=== PATIENT | male | born 2000 | race Native Hawaiian/Other Pacific Islander ===

== ENCOUNTER 2022-05-27 14:50 | Emergency (ER) | payer MEDICAID, SELFPAY ==
[2022-05-27 15:30] VITALS: BP 152/95; PULSE 92; RESP 18; TEMP 37.5; O2SAT 98; BMI 28.1
[2022-05-27 17:26] LABS: Strep A DNA Probe* NOT DETECTED (Not Detectd)
[2022-05-27 17:39] LABS: PCR FLU A Negative PCR FLU A (Negative); PCR FLU B Negative PCR FLU B (Negative)
[2022-05-27 17:40] LABS: SARS PCR* Negative SARS-CoV-2 (Negative)
[2022-05-27 18:15] LABS: Mono Screen* Negative (Negative)
--- NOTE | 2022-05-27 18:20 | ED.NURSE ---
Pt brought back to room ED2-1.
--- NOTE | 2022-05-27 18:29 | ED_ITS ---
HPI - General Adult General Chief complaint: Sore Throat Stated complaint: Sore Throat Time Seen by Provider: 05/27/22 15:56 Source: patient Mode of arrival: ambulatory Limitations: no limitations History of Present Illness HPI narrative: 22 year old male coming in today complaining of sore throat for the last 4 days. He is not taking any medications. He denies any fevers, vomiting or cough. No body aches. Normal appetite. No difficulty breathing or swallowing. No excessive drooling. No difficulty opening or closing his mouth. No trismus. Related Data Home Medications Medication Instructions Recorded Confirmed No Known Home Medications 05/27/22 05/27/22 Allergies Allergy/AdvReac Type Severity Reaction Status Date / Time No Known Drug Allergies Allergy Verified 05/27/22 15:32 Review of Systems Status of ROS: Reports: 10 or more systems reviewed and unremarkable except as noted in History and below Exam Narrative: Exam Narrative: Well-nourished well-developed patient in no acute distress. Alert and oriented. Answers questions appropriately. Mood and affect are appropriate. Thoughts are goal oriented and rational. No tangential or magical thinking noted. Patient speaks in full sentences without needing to catch their breath. Speech is not slurred or pressured. Voice sounds normal. HEENT: Normocephalic atraumatic. Pupils are equally round reactive to light. Extraocular muscles are intact. Conjunctivae are moist without any icterus noted. Moist mucous membranes. Posterior pharynx is normal. Tonsils appear normal. Soft palate is intact without any swelling or erythema. He can open and close his mouth without difficulty. He has no ear pain. Neck is soft without any lymphadenopathy or thyromegaly. No masses are appreciated. Cardiovascular: Heart is regular rate and rhythm S1 and S2 are present without any murmurs. Lungs: Clear to auscultation bilaterally no wheezes rhonchi or rales are appreciated. Patient takes deep breaths without any discomfort. Skin: Well perfused without any obvious rashes. Const: Vital Signs, click to edit/add: Vital Signs - 24 hr 05/27/22 15:30 Temperature 99.5 F Pulse Rate [Right Pulse Oximeter] 92 Respiratory Rate 18 Blood Pressure [Ri ght Upper Arm] 152/95 H Pulse Oximetry 98 Oxygen Delivery Me thod Room Air Course Course Hospital Course: COVID, influenza, strep, mono all negative. Vital Signs Vital signs: Initial Vital Signs Temperature 99.5 F 05/27/22 15:30 Temperature Source Temporal Artery Scan 05/27/22 15:30 Pulse Rate 92 05/27/22 15:30 Respiratory Rate 18 05/27/22 15:30 Blood Pressure 152/95 H 05/27/22 15:30 Blood Pressure Mean 114 05/27/22 15:30 Blood Pressure Position Sitting 05/27/22 15:30 Pulse Oximetry 98 05/27/22 15:30 Oxygen Delivery Method 05/27/22 15:30 Vital Signs Temperature 99.5 F 05/27/22 15:30 Pulse Rate 92 05/27/22 15:30 Respiratory Rate 18 05/27/22 15:30 Blood Pressure 152/95 H 05/27/22 15:30 Pulse Oximetry 98 05/27/22 15:30 Oxygen Delivery Method 05/27/22 15:30 Temperature 99.5 F 05/27/22 15:30 Pulse Rate 92 05/27/22 15:30 Respiratory Rate 18 05/27/22 15:30 Blood Pressure 152/95 H 05/27/22 15:30 Pulse Oximetry 98 05/27/22 15:30 Oxygen Delivery Method 05/27/22 15:30 Medical Decision Making MDM Narrative Medical decision making narrative: 22-year-old male with likely viral pharyngitis. We discussed symptomatic treatment reasons to return for follow-up. Differential Diagnosis Differential Diagnosis: Bacterial pharyngitis Lab Data Labs: Lab Results 05/27/22 05/27/22 05/27/22 Range/Units 15:56 15:56 17:41 SARS-CoV-2 (PCR) Negative SARS-CoV-2 (Negative) Monoscreen Negative (Negative) Influenza Type A (PCR) Negative PCR FLU A (Negative) Influenza Type B (PCR) Negative PCR FLU B (Negative) Group A Strep DNA NOT DETECTED (Not Detectd) Discharge Plan Discharge Clinical Impression: Acute viral pharyngitis Patient Disposition: Home, Self-Care Condition: Stable Additional Instructions: Okay to take 600 mg of ibuprofen every 8 hours as needed with food. Also can try Tylenol 1000 mg every 8 hours. Follow-up with primary care provider if you feel like things are getting worse instead of better over the next several days. Prescriptions: No Action No Known Home Medications Follow Up/Referrals: Tee Guan MD [Primary Care Provider] - Stand Alone Forms: [employer] Info Instructions
[2022-05-27 18:31] VITALS: BP 151/85; PULSE 95; O2SAT 97
== END 2022-05-27 18:49 | disposition home or self-care (01) ==
LOC: ED2 18:40
PROVIDERS: Emergency Provider Family Medicine; PCP Family Medicine
DX: J02.9 Acute pharyngitis, unspecified (principal)
CPT/HCPCS: 36415; 86308; 87631; 87651; 99283; 99284

== ENCOUNTER 2022-05-29 12:39 | Emergency (ER) | payer MEDICAID, SELFPAY ==
[2022-05-29 12:58] VITALS: BP 160/90; PULSE 113; RESP 16; TEMP 37.4; O2SAT 96; BMI 28.1
[2022-05-29 14:00] VITALS: BP 162/96; PULSE 107; RESP 20; O2SAT 97
[2022-05-29] MEDS: ACETAMINOPHEN 500 MG TABLET 1000 MG PO (14:59)
[2022-05-29] MEDS: IBUPROFEN 200 MG TABLET 400 MG PO (14:59)
[2022-05-29 15:09] LABS: Strep A DNA Probe* NOT DETECTED (Not Detectd)
--- NOTE | 2022-05-29 17:31 | ED.GENADULT ---
HPI - General Adult General Chief complaint: Sore Throat Stated complaint: Sore throat Time Seen by Provider: 05/29/22 14:06 Source: patient and family History of Present Illness HPI narrative: Patient is a 22-year-old who was seen here yesterday for sore throat. He had viral testing done which was negative, strep rapid test was negative. He was sent home with recommended supportive care. He comes back because of ongoing sore throat. He said at triage that he could not swallow secretions however, in conversation with me he is speaking with a normal voice and is swallowing secretions without difficulty. No difficulty breathing. In talking with him, he is not really taking anything for pain. He is taking occasional Tylenol, has not taken anything today. He is taking cough medicine and occasional cold medicine. His mom helps fill in some of the details about what he has been taking for medication. She speaks [place]ian so they conversed with each other and then he he relays the information that she is telling him about what he has been taking. He says he does not smoke or drink. Related Data Home Medications Medication Instructions Recorded Confirmed No Known Home Medications 05/27/22 05/27/22 Allergies Allergy/AdvReac Type Severity Reaction Status Date / Time peanut Allergy Severe Swelling Verified 05/29/22 13:04 of Lip/Tongue/Throat tree nut Allergy Severe Swelling Verified 05/29/22 13:04 of Lip/Tongue/Throat Review of Systems Status of ROS: Reports: 10 or more systems reviewed and unremarkable except as noted in History and below [facility] Social History Smoking Status: Never smoker Do you use any of these nicotine containing products: None How often do you have a drink containing alcohol: never AUDIT-C Alcohol total score: 0 Non-prescribed substance use: denies use Exam Narrative: Exam Narrative: In general, an alert, nontoxic young man. Voice is normal. Breathing easily. Head: Normocephalic, atraumatic. Eyes: Sclera clear. ENT: Nares clear. TMs normal bilaterally. Throat is normal appearance, no edema, exudate, or evidence of abscess. Mild erythema. Mucous membranes are moist. Neck: No adenopathy, stridor, tracheal tenderness. Heart: Regular rate and rhythm. Lungs: Clear. No crackles, wheezes, increased work of breathing. Skin: Warm dry well perfused. Neurologic: Alert, conversant, appropriate. Affect: Normal. Const: Vital Signs, click to edit/add: Vital Signs - 24 hr 05/29/22 12:58 05/29/22 14:00 Temperature 99.4 F Pulse Rate [Right Pulse Oximeter] 113 H 107 H Respiratory Rate 16 20 Blood Pressure [Ri ght Upper Arm] 160/90 H 162/96 H Pulse Oximetry 96 97 Oxygen Delivery Me thod Room Air Room Air Documenting provider has reviewed patient's vital signs: yes Course Course Hospital Course: Given the degree of severity he attributes to a sore throat I did do a strep DNA which was negative. I think he is under treating his pain in terms of what he is taking. I discussed with him that I think if he adds ibuprofen to his arsenal, and takes pain medication regularly rather than just taking cold medicine he will feel significantly better. I gave him ibuprofen and Tylenol here and I would like him to take that 3 times daily for the next few days while he is dealing with a sore throat. I do not see any evidence here of abscess. He does not have significant fever here, does not have tonsillitis or adenopathy. My suspicion of mono is relatively low. For now just continue with supportive care. If he is not improving over the next week or so, follow-up with primary care. Continue to monitor for more severe symptoms and return as needed. Vital Signs Vital signs: Initial Vital Signs Temperature 99.4 F 05/29/22 12:58 Temperature Source Temporal Artery Scan 05/29/22 12:58 Pulse Rate 113 H 05/29/22 12:58 Pulse Rhythm 05/29/22 12:58 Respiratory Rate 16 05/29/22 12:58 Blood Pressure 160/90 H 05/29/22 12:58 Blood Pressure Mean 113 05/29/22 12:58 Blood Pressure Position Sitting 05/29/22 12:58 Pulse Oximetry 96 05/29/22 12:58 Oxygen Delivery Method 05/29/22 12:58 Vital Signs Temperature 99.4 F 05/29/22 12:58 Pulse Rate 113 H 05/29/22 12:58 Respiratory Rate 16 05/29/22 12:58 Blood Pressure 160/90 H 05/29/22 12:58 Pulse Oximetry 96 05/29/22 12:58 Oxygen Delivery Method 05/29/22 12:58 Temperature 99.4 F 05/29/22 12:58 Pulse Rate 107 H 05/29/22 14:00 Respiratory Rate 20 05/29/22 14:00 Blood Pressure 162/96 H 05/29/22 14:00 Pulse Oximetry 97 05/29/22 14:00 Oxygen Delivery Method 05/29/22 14:00 Medical Decision Making Lab Data Labs: Lab Results 05/29/22 Range/Units 14:40 Group A Strep DNA NOT DETECTED (Not Detectd) Discharge Plan Discharge Clinical Impression: Acute viral pharyngitis Patient Disposition: Home, Self-Care Instructions: Pharyngitis (ED) Additional Instructions: Ibuprofen 400 mg plus Tylenol 1000 mg 3 times daily for pain. You can take cough and cold medicines, but they will likely not have much effect on your sore throat. Throat lozenges or sprays might be helpful as well. If you develop high fevers, pain which seems to get worse on 1 side or the other, or severe pain despite treatment, return for re-evaluation. Prescriptions: No Action No Known Home Medications Follow Up/Referrals: Tee Guan MD [Primary Care Provider] - Stand Alone Forms: [employer] [facility] Info Instructions
== END 2022-05-29 15:22 | disposition home or self-care (01) ==
LOC: ED 14:31
PROVIDERS: Emergency Provider Emergency Medicine; PCP Family Medicine
DX: J02.9 Acute pharyngitis, unspecified (principal)
CPT/HCPCS: 87651; 99283; 99284; A9270